=== PATIENT | female | born 1965 | race Caucasian/White ===

== ENCOUNTER 2019-07-16 06:01 | Day surgery (SDC) | payer BC ==
[~2019-07-16] VITALS: Ht 175.3 cm; Wt 72.1 kg
--- NOTE | ~2019-07-16 | OP ---
PATIENT NAME: TINY HOWELL MEDICAL RECORD: [id number] :61 LOCATION:D.OPS ADMISSION DATE: SURGEON: ROBBIE BEGUM DPM DATE OF OPERATION: 07/16/2019 PREOPERATIVE DIAGNOSES: 1. Hallux abductovalgus, right foot. 2. Instability, right first met cuneiform joint. 3. Plantar plate rupture, right second metatarsophalangeal joint. 4. Hammertoe, right second digit. POSTOPERATIVE DIAGNOSES: 1. Hallux abductovalgus, right foot. 2. Instability, right first met cuneiform joint. 3. Plantar plate rupture, right second metatarsophalangeal joint. 4. Hammertoe, right second digit. PROCEDURES 1. David bunionectomy. 2. First met cuneiform joint fusion. 3. Kelly osteotomy, right second metatarsal. 4. Plantar plate repair, right second MPJ. 5. PIPJ fusion, right second digit. ANESTHESIA: Preoperative popliteal block per the anesthesia department as well as intraoperative general anesthesia. HEMOSTASIS: Right thigh tourniquet at 350 mmHg. PREOPERATIVE DETAILS: The patient was taken to the OR, placed on the operating table in a supine position. This was followed by induction of general anesthesia. The right extremity was then prepped and draped in usual aseptic technique followed by exsanguination and inflation of tourniquet. PROCEDURE #1: David bunionectomy, right foot. A 15 blade was used to create an incision from the dorsal aspect of the medial cuneiform distally to the base of proximal phalanx of the hallux. The incision was deepened down through subcutaneous tissue down to the first MPJ. An inverted L capsulotomy was performed. The medial capsular flap was reflected and the head of the first metatarsal was delivered. A sagittal saw was used to resect the medial eminence. Attention was then directed to the first interspace where a lateral release was performed. PROCEDURE #2: First met cuneiform joint fusion, right foot. The incision as described in #1 was deepened down through the periosteum delivering the joint of the first met cuneiform joint. A sagittal saw was used to resect the joint. Temporary fixation was placed noting good alignment. A 5-hole plate with 1-hole crossing the fusion site going through the plate was placed and excellent rigid internal fixation verified good placement and alignment with the C-arm. The wound was flushed. The joint capsule as well as the deep tissue was repaired with 2-0 Vicryl, the subcutaneous tissue was reapproximated with 4-0 Rapide and the skin was closed with 4-0 Rapide in a subcuticular fashion followed by Dermabond. PROCEDURE #3: Kelly osteotomy, right second metatarsal. A curvilinear incision OPERATIVE REPORT [id number] TINY HOWELL was made from the middle of the shaft of the second metatarsal distally on top of the PIPJ of the second digit. The incision was deepened down through subcutaneous tissue to the extensor longus tendon, which was freed and incised in a Z fashion. This gave access to the second MPJ, which was noted to be dorsally dislocated. A longitudinal and capsular incision was made giving access to the head of the second metatarsal. A McGlamry scoop elevator was used to free the plantar structures and relocate the proximal phalanx. A sagittal saw was then used to create a Kelly osteotomy from dorsal distal to plantar proximal. The capital fragment was translocated proximally as far as possible and temporarily fixated with a K-wire. PROCEDURE #4: Plantar plate repair, right second MPJ. At this time, a second K-wire was placed in the middle of the proximal phalanx of the second digit. A wire distractor was placed over and the joint was distracted giving access to the plantar plate. There was noted to be significant lateral tear of the plantar plate. A 15-blade was used to finish the tear medially. A FiberWire was passed through the plantar plate. Two small drill holes were made in the base of proximal phalanx and the FiberWire was passed up through the drill holes. At this time, the Kelly osteotomy was placed back in proper alignment and fixated with 2 popoff screws. This gave the ability to then put the second digit in a neutral position and the FiberWire was secured with surgeon's knots allowing the proximal phalanx to sit in a much more rectus position against the second metatarsal head. This finishes the repair of the plantar plate as well as the Kelly osteotomy. PROCEDURE #5: PIPJ fusion, right second digit. The extensor longus tendon was freed from the dorsal aspect of the PIPJ. A sagittal saw was used to resect the head of the proximal phalanx, the base of middle phalanx. Small drill holes were made to accommodate the hammer tube graft, which was placed in the proximal phalanx first and the middle phalanx was placed on top of the graft, noting excellent alignment as well as rigid fixation. Wound was flushed. The second MPJ was repaired with 2-0 Vicryl, the extensor longus tendon was repaired with 4-0 Rapide, the subcutaneous tissue was reapproximated with 4-0 Rapide and the skin was closed with 4-0 Rapide in a subcuticular technique followed by Dermabond. Adaptic, 4 x 4 and Conform were used to dress the wound followed by application of a modified Nelson compression dressing. Tourniquet was deflated. POSTOPERATIVE DETAILS: The patient tolerated the procedure well and left the OR with vital signs stable and vascular status at preoperative levels. The patient was transported to recovery per anesthesia in stable condition. TRANSINT:[id number] Voice Confirmation ID: [id number] DOCUMENT ID: [id number] ROBBIE BEGUM DPM CC: [id number] DICTATION DATE: 07/16/19 1103 HEALTH EDITOR: 07/16/19 1401 [facility] 07/16/19 [id number] [place] [address]
[~2019-07-16 06:01] MED LIST: PAXIL CR25 MG PO; PROBIOTIC1 EAC1 PO; TERBINAFINE HC250 MG PO; ZYRTEC10 MG PO
[2019-07-16 06:28] LABS: MCH 30.8 pg (26.0-34.0); MCHC 31.8 g/dL (31.0-37.0); MCV 96.9 fL (80.0-100.0); MEAN PLATELET VOLUME 10.5 fL (7.4-10.4); RBC 4.54 10x6/uL (4.00-5.40); RDW 12.8 % (11.5-14.5)
[2019-07-16 07:20] VITALS: BP 107/70; Ht 175.3 cm; Wt 72.1 kg
--- NOTE | 2019-07-16 12:42 | NUR ---
DC INSTRUCTIONS GIVEN TO PT/FAMILY. STATE UNDERSTANDING. DC'D IV CATH FULLY INTACT.
--- NOTE | 2019-07-16 12:52 | NUR ---
PT LEFT UNIT VIA WC AT 1251
== END 2019-07-16 12:51 | disposition home or self-care (01) ==
LOC: D.OPS 06:01 → D.PAN 08:30 → D.OPS 09:30 → D.PAN 09:30 → D.OPS 12:51
PROVIDERS: Anesthesiology; ATTEND Podiatrist
DX: M20.11 Hallux valgus (acquired), right foot (principal); M25.374 Other instability, right foot; M20.41 Other hammer toe(s) (acquired), right foot